=== PATIENT | male | born 1945 | race Caucasian/White ===

== ENCOUNTER 2019-03-27 18:12 | Emergency (ER) | payer OTHER, MEDICARE, SELFPAY ==
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
[2019-03-27 18:25] VITALS: O2SAT 100
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
[2019-03-27 18:53] LABS: Add Manual Diff / Slide Review NO; Basophils Absolute Auto 100 /uL (0-100); Eosinophils Absolute Auto 100 /uL (0-450); Eosinophils Percent Auto 2.1 % (2-4); Hematocrit 42.2 % (41-53); INR 1.7 (0.9-1.3); Lymphocytes Absolute Auto 2500 /uL (1100-4500); Mean Corpuscular HGB Conc 33.1 % (30-36); Mean Corpuscular Hemoglobin 31.5 PG (26-34); Monocytes Absolute Auto 100 /uL (0-900); Monocytes Percent Auto 2.1 % (3-14); Neutrophils Absolute Auto 4000 /uL (1500-7000); Neutrophils Percent Auto 58.8 % (50-75); Platelet Count 112 X10^3/uL (150-400); Prothrombin Time 19.9 SECONDS (10.1-12.7); Red Blood Cell Count 4.44 X10^6/uL (4.5-5.9); Red Cell Distribution Width 13.7 % (11.6-14.8); White Blood Cell Count 6.9 X10^3/uL (4.5-11.0)
[2019-03-27 18:55] LABS: PTT Partial Thromboplastin Tim 46 SECONDS (26.4-36.2)
[2019-03-27 18:56] LABS: Alanine Aminotransferase 109 IU/L (<50); Albumin Globulin Ratio 1.5 (1.0-2.8); Alkaline Phosphatase 75 U/L (38-126); Aspartate Aminotransferase 161 IU/L (17-59); Bilirubin Total 0.6 mg/dL (0.2-1.3); Blood Urea Nitrogen 18 mg/dL (9-20); Carbon Dioxide 26 mmol/L (22-32); Chloride 102 mmol/L (98-107); Estimated Glomerular Filt Rate 45.6 mL/min (>60); Ethanol (ETOH) < 10 mg/dL; Globulin 2.7 g/dL (1.7-4.1); Glucose 148 mg/dL (80-110); HEMOLYSIS 15 (0-50); Lipase 245 U/L (23-300); Potassium 5.6 mmol/L (3.4-5.1); Sodium 139 mmol/L (137-145); Total Protein 6.7 g/dL (6.3-8.2)
[2019-03-27 19:04] LABS: Creatine Kinase 608 U/L (55-170)
[2019-03-27 19:17] LABS: Troponin I < 0.012 ng/mL (0.01-0.034)
[2019-03-27 19:20] LABS: CKMB % Relative Index 2.8 % (1.5-5.0)
[2019-03-27 19:50] LABS: Hematocrit 35.9 % (41-53); Hemoglobin 12.3 g/dL (13.5-17.5); Platelet Count 78 X10^3/uL (150-400)
[2019-03-27 19:56] LABS: INR 2.1 (0.9-1.3); Prothrombin Time 24.3 SECONDS (10.1-12.7)
[2019-03-27 19:59] LABS: PTT Partial Thromboplastin Tim 47 SECONDS (26.4-36.2)
[2019-03-27 20:00] LABS: Fibrinogen 58 mg/dL (211-428)
--- NOTE | 2019-03-27 20:33 | PC.NURSE ---
I called [facility] to make sure that they didn't need any further report about this patient that they are receiving via [facility]. PEARL Mirza responded that they didnt need to speak to the nurse or doctor at this moment. I gave him the department phone number if any questions were to arise.
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
== END 2019-03-27 20:11 | disposition short-term general hospital (02) ==
PROVIDERS: Emergency Provider Emergency Medicine
DX: I71.01 Dissection of thoracic aorta (principal); J93.9 Pneumothorax, unspecified; S32.9XXA Fracture of unspecified parts of lumbosacral spine and pelvis, initial encounter for closed fracture; I48.91 Unspecified atrial fibrillation; R94.5 Abnormal results of liver function studies; V03.19XA Pedestrian with other conveyance injured in collision with car, pick-up truck or van in traffic accident, initial encounter
CPT/HCPCS: 36415; 36430; 70450; 71045; 71260; 72125; 72170; 74177; 80053; 80320; 82550; 82553; 83690; 84484; 85014; 85018; 85025; 85049; 85384; 85610; 85730; 86850; 86900; 86901; 86927; 94002; 94770; 99284; 99291; 99292; P9016; G0390; J0171; J0461; J2704; J3010